=== PATIENT | male | born 1985 | race African-American/Black ===

== ENCOUNTER 2016-05-27 09:52 | Emergency (ER) | payer SELFPAY ==
[2016-05-27 09:48] LABS: BASOPHILS 0.3 %; BASOPHILS ABSOLUTE 0.02 10/3/uL (0.0-0.16); EOSINOPHILS 2.4 %; EOSINOPHILS ABSOLUTE 0.16 10/3/uL (0.0-0.53); ER CBC TAT 0 Hrs 07 Mins; HEMATOCRIT 41.2 % (40.0-51.0); HEMOGLOBIN 14.4 g/dL (13.6-17.8); IMMATURE GRANULOCYTES 0.1 %; IMMATURE GRANULOCYTES ABSOLUTE 0.01 10/3/uL (0.0-0.11); LYMPHOCYTES 36.7 %; LYMPHOCYTES ABSOLUTE 2.49 10/3/uL (0.67-4.30); MANUAL DIFF NO %; MEAN CORPUSCULAR HEMOGLOB 30.1 pg (26.0-34.0); MEAN PLATELET VOLUME 10.5 fL (9.2-13.0); MONOCYTES 12.2 %; MONOCYTES ABSOLUTE 0.83 10/3/uL (0.21-1.20); NEUTROPHILS 48.3 %; NEUTROPHILS ABSOLUTE 3.28 10/3/uL (2.02-8.40); PLATELET COUNT 283 10/3/uL (150-400); RBC DISTRIBUTION WIDTH 14.8 % (12.0-16.0); RED CELL COUNT 4.79 10/6/uL (4.7-6.1); WHITE BLOOD CELLS 6.8 10/3/uL (4.5-10.5)
[2016-05-27 09:53] LABS: INTERNATIONAL NORMAL RATI 1.5 UNITS (-); PROTIME (NOT ORD) 17.5 SEC (12.0-14.5)
[2016-05-27 09:54] LABS: PARTIAL THROMBO TIME 33.3 SEC (22.5-37.2)
[2016-05-27 10:11] LABS: BUN (BLOOD UREA NITROGEN) 8 MG/DL (6-23); CHEST PAIN PROFILE TAT 0 Hrs 30 Mins; CHLORIDE, SERUM 106 MMOL/L (96-112); CO2 (CARBON DIOXIDE) 28 MMOL/L (24-34); CREATININE 1.24 MG/DL (0.70-1.30); GFR AFRICAN AMERICAN 91 ML/MIN (>=60); GFR NON AFRICAN AMERICAN 79 ML/MIN (>=60); GLUCOSE, SERUM 73 MG/DL (60-99); SODIUM, SERUM 140 MMOL/L (135-148); TROPONIN I <0.02 NG/ML (<0.05); ULTRASENSITIVE TSH 0.612 MCIU/ML (0.358-3.740)
== END 2016-05-27 11:07 | disposition home or self-care (01) ==
LOC: ER 09:52
PROVIDERS: Emergency Medicine
DX: I10 Essential (primary) hypertension (principal); F17.200 Nicotine dependence, unspecified, uncomplicated
CPT/HCPCS: 80048; 83735; 84443; 84484; 85025; 85610; 85730; 99283

== ENCOUNTER 2016-06-05 12:41 | Emergency (ER) | payer SELFPAY | END 2016-06-05 14:55 | disposition home or self-care (01) | LOC: ER 12:41 | DX: R76.11 Nonspecific reaction to tuberculin skin test without active tuberculosis (principal); F17.200 Nicotine dependence, unspecified, uncomplicated | CPT/HCPCS: 71020; 99282 ==

== ENCOUNTER → 2016-07-30 10:33 | Emergency (ER) | payer SELFPAY | END | disposition home or self-care (01) | LOC: ER 10:33 | DX: K04.7 Periapical abscess without sinus (principal); F17.200 Nicotine dependence, unspecified, uncomplicated | CPT/HCPCS: 99282 ==